=== PATIENT | female | born 1990 | race Two or more races ===

== ENCOUNTER 2024-05-16 17:35 | Emergency (ER) | payer MEDICAID, SELFPAY ==
[2024-05-16 17:36] VITALS: BMI 33.3
[2024-05-16 18:25] VITALS: BP 126/85; PULSE 97; RESP 17; TEMP 37; O2SAT 99
--- NOTE | 2024-05-16 18:54 | PD.EDURI ---
Upper Respiratory Inf. RME/HPI General Chief Complaint: Flu Like Symptoms Stated Complaint: FLU SYMPTOMS FOR 2 DAYS Time Seen by Provider: 05/16/24 17:43 Arrival date/time: 05/16/24 17:35 34-year-old female reports with complaints of several days of bodyaches fevers chills cough congestion runny nose shortness of breath. Patient states that she has been taking [id number]-nth-[id number] medications with minimal relief of symptoms. She denies chest pain or abdominal pain. She does report nausea and vomiting Limitations: no limitations Related Data Previous Rx's ?Medication ?Instructions ?Recorded azithromycin 250 mg tablet See Rx Instructions PO .COMPLEX #6 05/16/24 (Zithromax Z-Conrad) tabs promethazine 6.25 mg-codeine 10 5 ml PO Q6H PRN cough #118 mL 05/16/24 mg/5 mL syrup Allergies Allergy/AdvReac Type Severity Reaction Status Date / Time No Known Allergies Allergy Verified 05/16/24 17:39 Review of Systems Constitutional Constitutional: Reports chills and Reports fever(s) ENT Ears, Nose, Mouth, and Throat: Denies dizziness, Denies sinus pressure and Denies sore throat Cardiovascular Cardiovascular: Denies chest pain, Reports dyspnea and Denies syncope Respiratory Respiratory: Reports cough and Reports dyspnea Gastrointestinal Gastrointestinal: Reports nausea and Reports vomiting Musculoskeletal Musculoskeletal: Reports back pain and Reports myalgias Integumentary/Breasts Skin/Breast: Denies erythema and Denies rash Neurologic Neurologic: Denies dizziness and Denies syncope Hematologic/Lymphatic Hematologic/Lymphatic: Denies easy bleeding and Denies easy bruising Past Medical History Social History SMOKING STATUS: Never smoker ED Exam General Limitations: Present no limitations General appearance: Present alert and in no apparent distress Head Head exam: Present atraumatic Eye Eye exam: Present normal appearance, PERRL and EOMI ENT ENT exam: Present normal exam, normal oropharynx and mucous membranes moist Neck Neck exam: Present normal inspection, full ROM and trachea midline Chest Chest inspection: Present normal inspection and symmetric chest wall rise Respiratory Respiratory exam: Present normal lung sounds bilaterally Cardiovascular Cardiovascular exam: Present regular rate, normal rhythm and normal heart sounds Abdominal Exam Abdominal exam: Present soft and normal bowel sounds Extremities Exam Extremities exam: Present normal inspection and full ROM Back Exam Back exam: Present normal inspection and full ROM Neurological Exam Neurological exam: Present alert, oriented X3 and CN II-XII intact Psychiatric Psychiatric exam: Present normal affect and normal mood Skin Skin exam: Present warm, dry, intact and normal color Course Course Course Narrative: 34-year-old female reports with complaint of flulike symptoms. Influenza A is positive. Radiology suspects early pneumonia. Patient will be treated for possible pneumonia and for the flu she will be advised on [id number] medications hydrating well and follow-up with primary care provider in 48 hours for reevaluation. She is stable nontoxic-appearing with stable vital signs she is in no respiratory distress as her oxygen saturations are above 95% she will be discharged home Quality Measures none Orders Category Date Time Status Bedside COVID-19 Antigen Test NOW Care 05/16/24 18:54 Active Bedside Influenza A&B Antigen Test NOW Care 05/16/24 18:54 Completed XR chest 2V Stat Exams 05/16/24 18:55 Completed Ibuprofen Tab [Motrin Tab] Med 05/16/24 20:01 Once 800 mg PO X1 ONE cefTRIAXone [Rocephin] 1,000 mg Med 05/16/24 19:52 Discontinued Lidocaine 1% 20 ml [Xylocaine 1% 20 ML] 2.1 ml IM X1 Vital Signs Vital signs: Vital Signs Temperature 98.6 F 05/16/24 18:25 Pulse Rate 97 05/16/24 18:25 Respiratory Rate 17 05/16/24 18:25 Blood Pressure 126/85 H 05/16/24 18:25 Pulse Oximetry (%) 99 05/16/24 18:25 Oxygen Delivery Method Room Air 05/16/24 18:25 Upper Respiratory Infection Patient data External records reviewed:: None Clinical information provided by:: patient Social determinants that could affect healthcare access:: none Patient has the following chronic illnesses:: none How is presenting disease/condition affected by chronic disease/condition?: no chronic disease Evaluation data The following diagnostics were reviewed and interpreted by me:: lab results and radiology exam(s) Lab and/or radiology exams considered but not ordered:: none Interpretation Summary: Influenza A and possible pneumonia Medications / Prescriptions Medications or Prescriptions considered but not ordered:: None Medication administrations:: Medication Administration History Discontinued Medications Ceftriaxone Sodium 1,000 mg/ (Lidocaine HCl 2.1 ml) 0 mg IM X1 ONE Stop: 05/16/24 19:53 As above Consultations Consultation(s) initiated? (list below): No Diagnosis Upper Respiratory Differential Diagnosis: upper respiratory infection, viral infection, bronchitis and influenza Most likely diagnosis given after review of the tests above:: Influenza A, pneumonia Admission Indicated Admission indicated?: not indicated Admission Request Was there a request for admission?: No Disposition Plan Disposition Plan: Discharge Discharge Attestation Discharge Attestation: The patient and all family members were given an opportunity to ask questions and understood the discharge instructions. Discharge instructions specifically effects, indications for sooner follow up or return to the emergency department, and the expected course of current diagnosis. Patient condition: Stable Discharge Plan Plan Patient Disposition: HOME (Self Care) Prescriptions/Referrals Prescriptions/Med Rec: New azithromycin [Zithromax Z-Conrad] 250 mg tablet See Rx Instructions .ROUTE .COMPLEX Qty: 6 0RF Rx Instructions: For 250 mg dose pack: take 500 mg today (day 1), then 250 mg for 4 days (days 2-5) promethazine-codeine 6.25-10 mg/5 mL syrup 5 ml PO Q6H PRN (Reason: cough) Qty: 118 0RF Referrals: Raj Gongora MD [Primary Care Provider] - In 1 week Problem List Clinical Impression: Influenza, Pneumonia Patient/Caregiver Discharge Instructions Education Materials: ED Influenza (Adult), ED Pneumonia (Adult) Additional Instructions: Take medications as directed hydrate well follow-up with your primary care provider in 48 hours for reevaluation Print Language: [place]e Stand Alone Forms: Paige Award Info., Patient Portal Info Letter
--- NOTE | 2024-05-16 18:55 | XR_ITS ---
Examination: PA lateral chest 2 views Technique: Upright PA lateral chest 2 views Exam date and time: May 16, 2024 1918 hrs. Indications: Fever shortness of breath beginning today. Findings: Normal heart size Mild increased markings at the right lung base Left lung clear The osseous structures are intact Impression: Suspicious for early pneumonia right base
[2024-05-16] MEDS: cefTRIAXone 1,000 MG, LIDOCAINE 1% 20 ML 2.1 ML IM (20:02)
[2024-05-16] MEDS: IBUPROFEN TAB 400 MG TABLET 800 MG PO (20:05)
== END 2024-05-16 20:37 | disposition home or self-care (01) ==
PROVIDERS: Emergency Provider Emergency Medicine; PCP Family Medicine
DX: J10.00 Influenza due to other identified influenza virus with unspecified type of pneumonia (principal)
CPT/HCPCS: 71046; 87400; 87811; 96372; 99283; J0696; J3490; A9270